=== PATIENT | male | born 1980 | race Caucasian/White ===

== ENCOUNTER 2017-09-18 06:53 | Inpatient (IN) | payer OTHER ==
[~2017-09-18] VITALS: Ht 170.2 cm; Wt 82.5 kg
[~2017-09-18 06:53] MED LIST: ASPI-1182 PO; GLIP10 PO; INSLAN SQ; PIOG30TA10 PO; SITA100 PO
[2017-09-18] MEDS ORDERED: DEXTROSE 5%-WATER 1,000 ML IV ONE (07:06)
[2017-09-18] MEDS ORDERED: DEXTROSE 50%-WATER 25 GM/50 ML SYRINGE IVP ONE ×3 (07:06→08:30)
[2017-09-18] MEDS ORDERED: INSNOV SQ (07:10)
[2017-09-18] MEDS ORDERED: INSLAN SQ (07:10)
[2017-09-18 07:13] LABS: GLUCOSE COMMENT 1 Repeated; GLUCOSE COMMENT 2 Doctor Notified; GLUCOSE,POINT OF CARE 20 MG/DL (70-110)
[2017-09-18 07:38] LABS: BASOPHILS % (AUTO) 0.7 % (0.0-2.0); EOSINOPHILS % (AUTO) 2.4 % (1.0-6.0); HEMATOCRIT 40.5 % (41-53); HEMOGLOBIN 13.9 g/dL (13.5-17.5); LYMPHOCYTES # (AUTO) 1.9 K/uL (1.0-4.8); LYMPHOCYTES % (AUTO) 33.1 % (22.0-44.0); MEAN CORPUSCULAR HEMOGLOBIN 30.5 pg (26.0-34.0); MEAN CORPUSCULAR HGB CONC 34.4 G/dL (31.0-37.0); MEAN CORPUSCULAR VOLUME 89 fL (80-100); MONOCYTES # (AUTO) 0.6 K/uL (0.1-1.0); NEUTROPHILS % (AUTO) 53.8 % (40.0-70.0); PLATELET COUNT (AUTO) 236 K/uL (150-450); RED BLOOD CELL COUNT(AUTO) 4.57 MIL/uL (4.50-5.90); RED CELL DISTRIBUTION WIDTH 13.4 % (11.5-14.5); WHITE BLOOD COUNT (AUTO) 5.6 K/uL (4.5-11.0)
[2017-09-18 07:50] LABS: ANION GAP 8 mmol/L (8-16); CALCIUM, TOTAL 8.7 mg/dL (8.8-10.5); CARBON DIOXIDE 28 mmol/L (22-29); CHLORIDE 106 mmol/L (98-107); CREATININE 0.95 mg/dL (0.60-1.30); GLOMERULAR FILTR. RATE CALC > 60 mL/min (>60); POTASSIUM 3.4 mmol/L (3.5-5.1); SODIUM SERUM 142 mmol/L (136-145); UREA NITROGEN, BLOOD 10 mg/dL (7-18)
[2017-09-18 07:56] LABS: ALANINE AMINOTRANSFERASE 29 U/L (12-78); ALBUMIN 3.8 g/dL (3.4-5.0); ASPARTATE AMINOTRANSFERASE 19 U/L (15-37); BILIRUBIN,TOTAL 0.3 mg/dL (0.1-1.0); TOTAL PROTEIN, SERUM 7.2 g/dL (6.4-8.2)
[2017-09-18] MEDS ORDERED: DEXTROSE 10%-WATER 1,000 ML IV ONE (08:30)
[2017-09-18 08:52] LABS: GLUCOSE,POINT OF CARE 34 MG/DL (70-110)
[2017-09-18 08:52] LABS: GLUCOSE,POINT OF CARE 127 MG/DL (70-110)
[2017-09-18 09:33] LABS: GLUCOSE,POINT OF CARE 124 MG/DL (70-110)
[2017-09-18 10:47] LABS: GLUCOSE,POINT OF CARE 140 MG/DL (70-110)
[2017-09-18 12:07] LABS: GLUCOSE,POINT OF CARE 188 MG/DL (70-110)
[2017-09-18 13:08] LABS: GLUCOSE,POINT OF CARE 242 MG/DL (70-110)
[2017-09-18 13:20] VITALS: BP 133/72
[2017-09-18] MEDS ORDERED: REPA2 PO (13:35)
[2017-09-18 16:00] VITALS: BP 114/75
[2017-09-18 18:41] LABS: GLUCOSE,POINT OF CARE 248 MG/DL (70-110)
[2017-09-18 19:30] VITALS: BP 127/78
[2017-09-18 19:37] LABS: GLUCOSE COMMENT 1 Doctor Notified; GLUCOSE,POINT OF CARE 314 MG/DL (70-110)
[2017-09-18] MEDS ORDERED: ACETAMINOPHEN 325 MG TABLET PO PRN (23:00)
[2017-09-18] MEDS ORDERED: ONDANSETRON HCL 4 MG/2 ML VIAL IVP PRN (23:00)
[2017-09-18] MEDS ORDERED: MORPHINE SULFATE 2 MG/ML SYRINGE IVP PRN (23:00)
[2017-09-18] MEDS ORDERED: MAGNESIUM HYDROXIDE SUSPENSION 30 ML UDCUP PO PRN (23:00)
[2017-09-18] MEDS ORDERED: HYDROCODONE/ACETAMINOPHEN 5-325 MG TABLET PO PRN (23:00)
[2017-09-18] MEDS ORDERED: ZOLPIDEM TARTRATE 5 MG TABLET PO PRN (23:00)
[2017-09-18] MEDS ORDERED: BISACODYL 10 MG RECTAL RECTAL SUPPOSITORY PR PRN (23:00)
[2017-09-18] MEDS ORDERED: ALBUTEROL SULFATE 2.5 MG/0.5 ML NEB SOLUTION NEB PRN (23:00)
[2017-09-18] MEDS ORDERED: IPRATROPIUM BROMIDE 0.5 MG/2.5 ML NEB SOLUTION NEB PRN (23:00)
[2017-09-18 23:22] LABS: GLUCOSE,POINT OF CARE 303 MG/DL (70-110)
[2017-09-19] MEDS ORDERED: HEPARIN SODIUM,PORCINE 5,000 UNITS/ML VIAL SQ SCH
[2017-09-19] MEDS ORDERED: PANTOPRAZOLE SODIUM 40 MG/VIAL IVP SCH (09:00)
[2017-09-19] MEDS ORDERED: DOCUSATE SODIUM 100 MG CAPSULE PO SCH (09:00)
== END 2017-09-18 21:30 | disposition home or self-care (01) | DRG 637 ==
LOC: EMS 06:54 → 4E 12:25
PROVIDERS: ADMIT Hospitalist; ATTEND Hospitalist
DX: E11.649 Type 2 diabetes mellitus with hypoglycemia without coma (principal); G93.41 Metabolic encephalopathy; T38.3X5A Adverse effect of insulin and oral hypoglycemic [antidiabetic] drugs, initial encounter; Z79.82 Long term (current) use of aspirin; Z83.3 Family history of diabetes mellitus; Z88.8 Allergy status to other drugs, medicaments and biological substances; Y92.89 Other specified places as the place of occurrence of the external cause; Z90.49 Acquired absence of other specified parts of digestive tract; Z79.4 Long term (current) use of insulin
CPT/HCPCS: 82962; 93005; 96374; 96376; 99285; J7060

== ENCOUNTER 2019-07-20 23:24 | Inpatient (IN) | payer MEDICAID, OTHER ==
[~2019-07-20] VITALS: Ht 170.2 cm; Wt 67.0 kg
[2019-07-20 23:51] LABS: GLUCOSE,POINT OF CARE > 600 MG/DL (70-110)
[2019-07-20] MEDS ORDERED: GLIP5TAB11 PO (23:55)
[2019-07-21 00:06] LABS: BASOPHILS % (AUTO) 0.7 % (0.0-2.0); EOSINOPHILS % (AUTO) 0 % (1.0-6.0); HEMATOCRIT 44.1 % (41-53); HEMOGLOBIN 13.5 g/dL (13.5-17.5); LYMPHOCYTES # (AUTO) 0.6 K/uL (1.0-4.8); LYMPHOCYTES % (AUTO) 3.6 % (22.0-44.0); MEAN CORPUSCULAR HGB CONC 30.6 G/dL (31.0-37.0); MEAN CORPUSCULAR VOLUME 101 fL (80-100); MONOCYTES # (AUTO) 0.7 K/uL (0.1-1.0); MONOCYTES % (AUTO) 4.5 % (2.0-9.0); NEUTROPHILS # (AUTO) 14.4 K/uL (1.8-7.7); PLATELET COUNT (AUTO) 227 K/uL (150-450); RED BLOOD CELL COUNT(AUTO) 4.35 MIL/uL (4.50-5.90); RED CELL DISTRIBUTION WIDTH 14.5 % (11.5-14.5)
[2019-07-21 00:13] LABS: NEUTROPHILS % (AUTO) 91.2 % (40.0-70.0)
[2019-07-21 00:43] LABS: GLUCOSE,RANDOM 960 mg/dL (70-110)
[2019-07-21 00:46] LABS: ANION GAP 37 mmol/L (8-16); CARBON DIOXIDE < 5 mmol/L (22-29); CHLORIDE 82 mmol/L (98-107); POTASSIUM 5.3 mmol/L (3.5-5.1); SODIUM SERUM 124 mmol/L (136-145); UREA NITROGEN, BLOOD 38 mg/dL (7-18)
[2019-07-21] MEDS ORDERED: POTASSIUM CHLORIDE 40 MEQ in SODIUM CHLORIDE 0.45% 1,000 ML IV PRN ×2 (00:46→05:59)
[2019-07-21] MEDS ORDERED: DEXTROSE 5%-0.45% SODIUM CHL 1,000 ML IV PRN ×2 (00:46→05:59)
[2019-07-21] MEDS ORDERED: SODIUM CHLORIDE 0.45% 1,000 ML IV PRN ×2 (00:46→05:59)
[2019-07-21] MEDS ORDERED: SODIUM CHLORIDE 0.9% 1,000 ML IV SCH ×2 (00:46→05:59)
[2019-07-21] MEDS ORDERED: POTASSIUM CHL 20 MEQ/0.45% NS 1,000 ML IV PRN ×2 (00:46→05:59)
[2019-07-21 00:47] LABS: ALANINE AMINOTRANSFERASE 13 U/L (12-78); ALKALINE PHOSPHATASE 110 U/L (46-116); ASPARTATE AMINOTRANSFERASE 10 U/L (15-37); BILIRUBIN,TOTAL 0.6 mg/dL (0.1-1.0); CALCIUM, TOTAL 8.4 mg/dL (8.8-10.5); CREATININE 2.79 mg/dL (0.60-1.30); GLOMERULAR FILTR. RATE CALC 26 mL/min (>60); TOTAL PROTEIN, SERUM 7.5 g/dL (6.4-8.2)
[2019-07-21 00:57] LABS: PROTHROMBIN TIME 10.4 SEC (9.4-11.6)
[2019-07-21 01:00] LABS: CREATINE KINASE, TOTAL ONLY 45 U/L (39-308)
[2019-07-21 01:00] LABS: APPEARANCE,URINE CLOUDY (CLEAR); GLUCOSE, URINE (UA) >=1000 mg/dL (NEGATIVE); KETONES,URINE 40 mg/dL (NEGATIVE); LEUKOCYTE ESTERASE ,URINE NEGATIVE (NEGATIVE); NITRATE,URINE NEGATIVE (NEGATIVE); OCCULT BLOOD,URINE TRACE (NEGATIVE); PROTEIN,URINE POS 1+ (NEGATIVE); UROBILINOGEN,URINE 0.2 mg/dL (<=1.0)
[2019-07-21] MEDS ORDERED: DEXTROSE 50%-WATER 25 GM/50 ML SYRINGE IVP PRN ×3 (01:00→12:30)
[2019-07-21 01:01] LABS: BILIRUBIN,URINE PRELIM. POSITIVE (NEGATIVE)
[2019-07-21] MEDS ORDERED: INSULIN REGULAR IV PRN ×2 (01:04)
[2019-07-21] MEDS ORDERED: HUMAN IV PRN ×2 (01:04)
[2019-07-21] MEDS ORDERED: SODIUM CHLORIDE 0.9% IV PRN ×2 (01:04)
[2019-07-21 01:10] LABS: RBC,URINE 0-2 /HPF (0-2); WBC,URINE 0-2 /HPF (0-5)
[2019-07-21 01:11] LABS: BACTERIA,URINE Few /HPF (None Seen); SQUAMOUS EPITHELIAL CELL,UR Few /LPF (None Seen)
[2019-07-21] MEDS ORDERED: INSULIN REGULAR, HUMAN 100 UNITS/ML IVP PRN ×2 (01:15→06:00)
[2019-07-21] MEDS ORDERED: INSULIN REGULAR, HUMAN 100 UNITS/ML IVP ONE ×2 (01:15→06:00)
[2019-07-21 01:18] LABS: B-TYPE NATRIURETIC PEPTIDE 17 pg/mL (0-100)
[2019-07-21] MEDS ORDERED: INSULIN REGULAR, HUMAN 100 UNITS in SODIUM CHLORIDE 0.9% 99 ML IV PRN ×4 (01:29→05:59)
[2019-07-21 01:33] LABS: LIPASE 107 U/L (73-393)
[2019-07-21 01:42] LABS: OSMOLALITY 347 mOS/kg (270-310)
[2019-07-21 02:51] LABS: GLUCOSE,POINT OF CARE > 600 MG/DL (70-110)
[2019-07-21] MEDS ORDERED: SODIUM CHLORIDE 0.9% 1,000 ML IV ONE (03:00)
[2019-07-21] MEDS ORDERED: ONDANSETRON HCL 4 MG/2 ML VIAL IVP ONE (03:00)
[2019-07-21 04:00] VITALS: BP 112/58
[2019-07-21] MEDS ORDERED: CefTRIAXone 1 GM/DEXTROSE 50 ML IV ONE (05:00)
[2019-07-21] MEDS ORDERED: VANCOMYCIN HCL 1 GM/D5% WATER 200 ML IV ONE (05:00)
[2019-07-21 05:09] LABS: BASOPHILS % (AUTO) 0.7 % (0.0-2.0); EOSINOPHILS % (AUTO) 0 % (1.0-6.0); HEMATOCRIT 39.1 % (41-53); HEMOGLOBIN 12.9 g/dL (13.5-17.5); LYMPHOCYTES # (AUTO) 0.4 K/uL (1.0-4.8); LYMPHOCYTES % (AUTO) 1.9 % (22.0-44.0); MEAN CORPUSCULAR HEMOGLOBIN 31.1 pg (26.0-34.0); MEAN CORPUSCULAR HGB CONC 32.9 G/dL (31.0-37.0); MEAN CORPUSCULAR VOLUME 95 fL (80-100); MONOCYTES # (AUTO) 1.4 K/uL (0.1-1.0); MONOCYTES % (AUTO) 6.7 % (2.0-9.0); PLATELET COUNT (AUTO) 205 K/uL (150-450); RED BLOOD CELL COUNT(AUTO) 4.14 MIL/uL (4.50-5.90); RED CELL DISTRIBUTION WIDTH 13.6 % (11.5-14.5)
[2019-07-21 05:26] LABS: NEUTROPHILS % (AUTO) 90.7 % (40.0-70.0)
[2019-07-21 05:39] LABS: ALBUMIN 3.4 g/dL (3.4-5.0); BILIRUBIN,TOTAL 0.6 mg/dL (0.1-1.0); CALCIUM, TOTAL 7.2 mg/dL (8.8-10.5); CREATININE 1.93 mg/dL (0.60-1.30); POTASSIUM 3.8 mmol/L (3.5-5.1); TOTAL PROTEIN, SERUM 6.9 g/dL (6.4-8.2)
[2019-07-21] MEDS ORDERED: PNEUMOCOCCAL VACCINE POLYVALENT 0.5 ML VIAL [PPSV23] IM ONE (05:45)
[2019-07-21] MEDS ORDERED: HYDROCODONE/ACETAMINOPHEN 5-325 MG TABLET PO PRN (06:00)
[2019-07-21] MEDS ORDERED: MORPHINE SULFATE 2 MG/ML SYRINGE IVP PRN (06:00)
[2019-07-21] MEDS ORDERED: BISACODYL 10 MG RECTAL RECTAL SUPPOSITORY PR PRN (06:00)
[2019-07-21] MEDS ORDERED: ZOLPIDEM TARTRATE 5 MG TABLET PO PRN (06:00)
[2019-07-21] MEDS ORDERED: MAGNESIUM HYDROXIDE SUSPENSION 30 ML UDCUP PO PRN (06:00)
[2019-07-21] MEDS ORDERED: ACETAMINOPHEN 325 MG TABLET PO PRN (06:00)
[2019-07-21] MEDS ORDERED: ONDANSETRON HCL 4 MG/2 ML VIAL IVP PRN (06:00)
[2019-07-21] MEDS ORDERED: SODIUM CHLORIDE 0.9% 250 ML IV ONE (06:17)
[2019-07-21 07:24] LABS: GLUCOSE,POINT OF CARE 187 MG/DL (70-110)
[2019-07-21 07:24] LABS: GLUCOSE,POINT OF CARE 102 MG/DL (70-110)
[2019-07-21 07:24] LABS: GLUCOSE,POINT OF CARE 486 MG/DL (70-110)
[2019-07-21 07:24] LABS: GLUCOSE,POINT OF CARE 307 MG/DL (70-110)
[2019-07-21 08:00] VITALS: BP 111/74
[2019-07-21] MEDS: DOCUSATE SODIUM 100 MG CAPSULE PO SCH ×2 (09:00→20:15)
[2019-07-21] MEDS: HEPARIN SODIUM,PORCINE 5,000 UNITS/ML VIAL SQ SCH ×2 (09:46→15:20)
[2019-07-21] MEDS: PANTOPRAZOLE SODIUM 40 MG DR TABLET PO SCH (09:46)
[2019-07-21 10:59] LABS: CALCIUM, TOTAL 7.5 mg/dL (8.8-10.5); CREATININE 1.51 mg/dL (0.60-1.30); POTASSIUM 3.3 mmol/L (3.5-5.1)
[2019-07-21] MEDS ORDERED: POTASSIUM CHL 10 MEQ/WATER 50 ML IV PRN (11:15)
[2019-07-21 11:20] LABS: MAGNESIUM 1.9 mg/dL (1.80-2.40)
[2019-07-21 11:24] LABS: PHOSPHORUS 1.3 mg/dL (2.5-4.9)
[2019-07-21 12:00] VITALS: BP 108/55
[2019-07-21] MEDS: POTASSIUM CHLORIDE 20 MEQ ER TABLET PO PRN (12:07)
[2019-07-21] MEDS: POTASSIUM PHOS/SODIUM PHOS MIXTURE 1 POWDER PACKET PO SCH ×3 (15:21→20:15)
[2019-07-21] MEDS: INSULIN LISPRO 100 UNITS/ML SQ PRN ×2 (15:34→17:45)
[2019-07-21 16:00] VITALS: BP 110/48
[2019-07-21 20:00] VITALS: BP 98/52
[2019-07-21] MEDS: INSULIN GLARGINE,HUM.REC.ANLOG 100 UNITS/ML SQ SCH (20:16)
[2019-07-21 21:17] LABS: GLUCOSE,POINT OF CARE 165 MG/DL (70-110)
[2019-07-21 21:17] LABS: GLUCOSE,POINT OF CARE 94 MG/DL (70-110)
[2019-07-21 21:17] LABS: GLUCOSE,POINT OF CARE 201 MG/DL (70-110)
[2019-07-21 21:17] LABS: GLUCOSE,POINT OF CARE 78 MG/DL (70-110)
[2019-07-21 21:17] LABS: GLUCOSE,POINT OF CARE 90 MG/DL (70-110)
[2019-07-21 21:17] LABS: GLUCOSE,POINT OF CARE 106 MG/DL (70-110)
[2019-07-21 21:17] LABS: GLUCOSE,POINT OF CARE 128 MG/DL (70-110)
[2019-07-21 21:17] LABS: GLUCOSE,POINT OF CARE 110 MG/DL (70-110)
[2019-07-22] VITALS: BP 117/88
[2019-07-22] MEDS: HEPARIN SODIUM,PORCINE 5,000 UNITS/ML VIAL SQ SCH ×3 (00:14→17:03)
[2019-07-22 04:00] VITALS: BP 110/70
[2019-07-22 05:12] LABS: BASOPHILS % (AUTO) 0.7 % (0.0-2.0); EOSINOPHILS % (AUTO) 0.1 % (1.0-6.0); HEMATOCRIT 34.9 % (41-53); HEMOGLOBIN 12.1 g/dL (13.5-17.5); LYMPHOCYTES % (AUTO) 9.7 % (22.0-44.0); MEAN CORPUSCULAR HEMOGLOBIN 31.5 pg (26.0-34.0); MEAN CORPUSCULAR HGB CONC 34.6 G/dL (31.0-37.0); MEAN CORPUSCULAR VOLUME 91 fL (80-100); MONOCYTES # (AUTO) 0.7 K/uL (0.1-1.0); MONOCYTES % (AUTO) 6.7 % (2.0-9.0); NEUTROPHILS # (AUTO) 8.8 K/uL (1.8-7.7); NEUTROPHILS % (AUTO) 82.8 % (40.0-70.0); PLATELET COUNT (AUTO) 164 K/uL (150-450); RED BLOOD CELL COUNT(AUTO) 3.83 MIL/uL (4.50-5.90); RED CELL DISTRIBUTION WIDTH 13.8 % (11.5-14.5)
[2019-07-22 05:25] LABS: ANION GAP 17 mmol/L (8-16); CARBON DIOXIDE 17 mmol/L (22-29); CHLORIDE 100 mmol/L (98-107); CREATININE 1.14 mg/dL (0.60-1.30); GLOMERULAR FILTR. RATE CALC > 60 mL/min (>60); GLUCOSE,RANDOM 338 mg/dL (70-110); PHOSPHORUS 1.6 mg/dL (2.5-4.9); POTASSIUM 4.1 mmol/L (3.5-5.1); SODIUM SERUM 134 mmol/L (136-145); UREA NITROGEN, BLOOD 15 mg/dL (7-18)
[2019-07-22] MEDS: INSULIN LISPRO 100 UNITS/ML SQ PRN ×3 (05:43→17:36)
[2019-07-22 08:00] VITALS: BP 104/57
[2019-07-22] MEDS: INSULIN GLARGINE,HUM.REC.ANLOG 100 UNITS/ML SQ SCH ×2 (08:38→21:54)
[2019-07-22] MEDS: DOCUSATE SODIUM 100 MG CAPSULE PO SCH ×2 (08:39→21:52)
[2019-07-22] MEDS: PANTOPRAZOLE SODIUM 40 MG DR TABLET PO SCH (08:39)
[2019-07-22 08:57] LABS: GLUCOSE,POINT OF CARE 315 MG/DL (70-110)
[2019-07-22 12:00] VITALS: BP 119/68
[2019-07-22 12:46] LABS: GLUCOSE,POINT OF CARE 244 MG/DL (70-110)
[2019-07-22] MEDS ORDERED: SODIUM CHLORIDE 0.9% 1,000 ML IV ONE (13:30)
[2019-07-22 19:56] LABS: GLUCOMETER DEV NAME(LOC) 6N.1; GLUCOSE,POINT OF CARE 162 MG/DL (70-110)
[2019-07-22 20:00] VITALS: BP 118/68
[2019-07-22 23:41] LABS: GLUCOMETER DEV NAME(LOC) 6N.1; GLUCOSE,POINT OF CARE 211 MG/DL (70-110)
[2019-07-23] VITALS (7 sets, daily range): BP systolic 126–150; BP diastolic 77–99
[2019-07-23] MEDS: HEPARIN SODIUM,PORCINE 5,000 UNITS/ML VIAL SQ SCH ×4 (00:21→23:43)
[2019-07-23] MEDS: INSULIN LISPRO 100 UNITS/ML SQ PRN ×4 (00:40→21:21)
[2019-07-23] MEDS: DOCUSATE SODIUM 100 MG CAPSULE PO SCH ×2 (09:00→21:19)
[2019-07-23] MEDS: PANTOPRAZOLE SODIUM 40 MG DR TABLET PO SCH (10:07)
[2019-07-23] MEDS: INSULIN GLARGINE,HUM.REC.ANLOG 100 UNITS/ML SQ SCH ×2 (10:08→21:22)
[2019-07-23 11:42] LABS: GLUCOMETER DEV NAME(LOC) 6N.1; GLUCOSE,POINT OF CARE 115 MG/DL (70-110)
[2019-07-23 11:42] LABS: GLUCOMETER DEV NAME(LOC) 6N.1; GLUCOSE,POINT OF CARE 256 MG/DL (70-110)
[2019-07-23 13:23] LABS: ALANINE AMINOTRANSFERASE 15 U/L (12-78); ALKALINE PHOSPHATASE 86 U/L (46-116); ANION GAP 13 mmol/L (8-16); ASPARTATE AMINOTRANSFERASE 14 U/L (15-37); BILIRUBIN,TOTAL 0.5 mg/dL (0.1-1.0); CALCIUM, TOTAL 8.1 mg/dL (8.8-10.5); CARBON DIOXIDE 23 mmol/L (22-29); CHLORIDE 102 mmol/L (98-107); CREATININE 0.93 mg/dL (0.60-1.30); GLOMERULAR FILTR. RATE CALC > 60 mL/min (>60); GLUCOSE,RANDOM 264 mg/dL (70-110); POTASSIUM 3.1 mmol/L (3.5-5.1); SODIUM SERUM 138 mmol/L (136-145); TOTAL PROTEIN, SERUM 6.2 g/dL (6.4-8.2); UREA NITROGEN, BLOOD 10 mg/dL (7-18)
[2019-07-23] MEDS: SODIUM CHLORIDE 0.9% 1,000 ML IV SCH ×2 (14:11→23:44)
[2019-07-23] MEDS: POTASSIUM CHLORIDE 20 MEQ ER TABLET PO PRN ×2 (17:10→23:43)
[2019-07-23 17:36] LABS: GLUCOMETER DEV NAME(LOC) 6N.1; GLUCOSE,POINT OF CARE 159 MG/DL (70-110)
[2019-07-23 20:36] LABS: GLUCOMETER DEV NAME(LOC) 6N.1; GLUCOSE,POINT OF CARE 253 MG/DL (70-110)
[2019-07-24 04:43] VITALS: BP 119/83
[2019-07-24] MEDS: INSULIN LISPRO 100 UNITS/ML SQ PRN ×2 (05:53→12:16)
[2019-07-24 06:27] LABS: GLUCOMETER DEV NAME(LOC) 6N.1; GLUCOSE,POINT OF CARE 154 MG/DL (70-110)
[2019-07-24 06:39] LABS: BASOPHILS % (AUTO) 0.7 % (0.0-2.0); EOSINOPHILS % (AUTO) 1.9 % (1.0-6.0); HEMATOCRIT 37.2 % (41-53); HEMOGLOBIN 12.8 g/dL (13.5-17.5); LYMPHOCYTES # (AUTO) 1.8 K/uL (1.0-4.8); LYMPHOCYTES % (AUTO) 30.4 % (22.0-44.0); MEAN CORPUSCULAR HEMOGLOBIN 31.1 pg (26.0-34.0); MEAN CORPUSCULAR HGB CONC 34.4 G/dL (31.0-37.0); MEAN CORPUSCULAR VOLUME 90 fL (80-100); MONOCYTES # (AUTO) 0.6 K/uL (0.1-1.0); MONOCYTES % (AUTO) 10.6 % (2.0-9.0); NEUTROPHILS # (AUTO) 3.3 K/uL (1.8-7.7); NEUTROPHILS % (AUTO) 56.4 % (40.0-70.0); PLATELET COUNT (AUTO) 164 K/uL (150-450); RED BLOOD CELL COUNT(AUTO) 4.12 MIL/uL (4.50-5.90); RED CELL DISTRIBUTION WIDTH 13.8 % (11.5-14.5)
[2019-07-24 07:01] LABS: ALANINE AMINOTRANSFERASE 14 U/L (12-78); ALBUMIN 2.9 g/dL (3.4-5.0); ALKALINE PHOSPHATASE 80 U/L (46-116); ANION GAP 6 mmol/L (8-16); ASPARTATE AMINOTRANSFERASE 14 U/L (15-37); BILIRUBIN,TOTAL 0.3 mg/dL (0.1-1.0); CALCIUM, TOTAL 8.2 mg/dL (8.8-10.5); CARBON DIOXIDE 29 mmol/L (22-29); CHLORIDE 108 mmol/L (98-107); GLOMERULAR FILTR. RATE CALC > 60 mL/min (>60); GLUCOSE,RANDOM 155 mg/dL (70-110); POTASSIUM 3.3 mmol/L (3.5-5.1); SODIUM SERUM 143 mmol/L (136-145); TOTAL PROTEIN, SERUM 5.7 g/dL (6.4-8.2); UREA NITROGEN, BLOOD 6 mg/dL (7-18)
[2019-07-24 08:37] VITALS: BP 122/74
[2019-07-24] MEDS: DOCUSATE SODIUM 100 MG CAPSULE PO SCH ×2 (08:55→09:01)
[2019-07-24] MEDS: PANTOPRAZOLE SODIUM 40 MG DR TABLET PO SCH (08:55)
[2019-07-24] MEDS: HEPARIN SODIUM,PORCINE 5,000 UNITS/ML VIAL SQ SCH (08:56)
[2019-07-24] MEDS: INSULIN GLARGINE,HUM.REC.ANLOG 100 UNITS/ML SQ SCH (08:58)
[2019-07-24] MEDS: SODIUM CHLORIDE 0.9% 1,000 ML IV SCH (08:59)
[2019-07-24] MEDS: POTASSIUM CHLORIDE 20 MEQ ER TABLET PO PRN (10:20)
[2019-07-24 12:36] LABS: GLUCOMETER DEV NAME(LOC) 6N.1; GLUCOSE,POINT OF CARE 224 MG/DL (70-110)
[2019-07-24] MEDS ORDERED: INSLAN SQ (12:50)
[2019-07-24 12:57] VITALS: BP 117/77
[2019-07-24] MEDS ORDERED: INSU100C14 SQ (12:57)
== END 2019-07-24 13:29 | disposition home or self-care (01) | DRG 420 ==
LOC: EMS 23:24 → ICUN 07-21 01:00 → 6N 07-22 15:55
PROVIDERS: ADMIT Internal Medicine; ATTEND Internal Medicine
DX: E11.10 Type 2 diabetes mellitus with ketoacidosis without coma (principal); N17.9 Acute kidney failure, unspecified; R64 Cachexia; R65.10 Systemic inflammatory response syndrome (SIRS) of non-infectious origin without acute organ dysfunction; E87.6 Hypokalemia; D64.9 Anemia, unspecified; D72.829 Elevated white blood cell count, unspecified; E87.1 Hypo-osmolality and hyponatremia; R07.89 Other chest pain; R00.0 Tachycardia, unspecified; Z79.4 Long term (current) use of insulin; Z68.23 Body mass index [BMI] 23.0-23.9, adult; Z79.899 Other long term (current) drug therapy
CPT/HCPCS: 83605; 83735; 83930; 84100; 84132; 87040; 87081; 93005; 99291; G0378; J0696; J1644; J1815; J2405; J3370; J3480; J7030; J7050

== ENCOUNTER 2021-06-05 04:32 | Emergency (ER) | payer BC, MEDICAID ==
[~2021-06-05] VITALS: Ht 170.2 cm; Wt 69.5 kg
[~2021-06-05 04:32] MED LIST changes: -ASPI-1182 PO; -GLIP10 PO; +INSU100C14 SQ; -PIOG30TA10 PO; -SITA100 PO
[2021-06-05 05:28] LABS: BASOPHILS % (AUTO) 0.6 % (0.0-2.0); EOSINOPHILS % (AUTO) 0.3 % (1.0-6.0); HEMATOCRIT 36.9 % (41-53); HEMOGLOBIN 12.5 g/dL (13.5-17.5); LYMPHOCYTES # (AUTO) 0.8 K/uL (1.0-4.8); LYMPHOCYTES % (AUTO) 8.5 % (22.0-44.0); MEAN CORPUSCULAR HEMOGLOBIN 30.6 pg (26.0-34.0); MEAN CORPUSCULAR VOLUME 90 fL (80-100); MONOCYTES % (AUTO) 9.5 % (2.0-9.0); NEUTROPHILS # (AUTO) 8.1 K/uL (1.8-7.7); NEUTROPHILS % (AUTO) 81.1 % (40.0-70.0); PLATELET COUNT (AUTO) 107 K/uL (150-450); RED BLOOD CELL COUNT(AUTO) 4.09 MIL/uL (4.50-5.90); RED CELL DISTRIBUTION WIDTH 13.1 % (11.5-14.5)
[2021-06-05 05:40] LABS: CALCIUM, TOTAL 9.1 mg/dL (8.8-10.5); CREATININE 1.52 mg/dL (0.60-1.30); POTASSIUM 4.3 mmol/L (3.5-5.1)
[2021-06-05 05:46] LABS: ALBUMIN 3.8 g/dL (3.4-5.0); BILIRUBIN,TOTAL 1.1 mg/dL (0.1-1.0); TOTAL PROTEIN, SERUM 7.8 g/dL (6.4-8.2)
[2021-06-05] MEDS ORDERED: INSULIN REGULAR, HUMAN 100 UNITS/ML IVP ONE ×2 (06:30→07:15)
[2021-06-05] MEDS ORDERED: ONDANSETRON HCL 4 MG/2 ML VIAL IVP ONE (06:30)
[2021-06-05] MEDS ORDERED: KETOROLAC TROMETHAMINE 30 MG/ML VIAL IVP ONE (06:30)
[2021-06-05] MEDS ORDERED: SODIUM CHLORIDE 0.9% 2,000 ML IV ONE (06:30)
[2021-06-05 07:08] LABS: GLUCOSE,POINT OF CARE 291 MG/DL (70-110)
[2021-06-05 08:36] LABS: GLUCOSE,POINT OF CARE 124 MG/DL (70-110)
[2021-06-05 08:44] VITALS: BP 152/52
== END 2021-06-05 08:50 | disposition home or self-care (01) ==
LOC: EMS 04:35
DX: E11.65 Type 2 diabetes mellitus with hyperglycemia (principal); G47.00 Insomnia, unspecified; E87.1 Hypo-osmolality and hyponatremia; Z79.4 Long term (current) use of insulin
CPT/HCPCS: 36415; 80053; 82009; 82962; 83690; 85025; 93005; 96361; 96374; 96375; 99284; J1815; J1885; J2405; J7030

== ENCOUNTER 2021-10-03 04:07 | Emergency (ER) | payer BC ==
[~2021-10-03] VITALS: Ht 170.2 cm; Wt 71.8 kg
[2021-10-03] MEDS ORDERED: SODIUM CHLORIDE 0.9% 2,000 ML IV ONE (05:30)
[2021-10-03] MEDS ORDERED: MECLIZINE HCL 25 MG TABLET PO ONE (05:30)
[2021-10-03] MEDS ORDERED: ACETAMINOPHEN 500 MG TABLET PO ONE (05:30)
[2021-10-03] MEDS ORDERED: ONDANSETRON HCL 4 MG/2 ML VIAL IVP ONE (05:30)
[2021-10-03 05:32] LABS: BASOPHILS % (AUTO) 0.6 % (0.0-2.0); HEMATOCRIT 32.2 % (41-53); HEMOGLOBIN 11.4 g/dL (13.5-17.5); LYMPHOCYTES # (AUTO) 1.7 K/uL (1.0-4.8); LYMPHOCYTES % (AUTO) 23.6 % (22.0-44.0); MEAN CORPUSCULAR HEMOGLOBIN 31.9 pg (26.0-34.0); MEAN CORPUSCULAR HGB CONC 35.3 G/dL (31.0-37.0); MEAN CORPUSCULAR VOLUME 90 fL (80-100); MONOCYTES # (AUTO) 0.9 K/uL (0.1-1.0); MONOCYTES % (AUTO) 12.6 % (2.0-9.0); NEUTROPHILS # (AUTO) 4.3 K/uL (1.8-7.7); NEUTROPHILS % (AUTO) 60.2 % (40.0-70.0); PLATELET COUNT (AUTO) 103 K/uL (150-450); RED BLOOD CELL COUNT(AUTO) 3.57 MIL/uL (4.50-5.90); RED CELL DISTRIBUTION WIDTH 12.8 % (11.5-14.5)
[2021-10-03 05:51] LABS: CALCIUM, TOTAL 8.8 mg/dL (8.8-10.5); POTASSIUM 3.6 mmol/L (3.5-5.1)
[2021-10-03 05:56] LABS: ALBUMIN 3.3 g/dL (3.4-5.0); BILIRUBIN,TOTAL 0.6 mg/dL (0.1-1.0); TOTAL PROTEIN, SERUM 6.7 g/dL (6.4-8.2)
[2021-10-03 07:36] VITALS: BP 136/85
== END 2021-10-03 08:15 | disposition home or self-care (01) ==
LOC: EMS 04:10
DX: E11.65 Type 2 diabetes mellitus with hyperglycemia (principal); R42 Dizziness and giddiness; R11.10 Vomiting, unspecified; Z79.4 Long term (current) use of insulin
CPT/HCPCS: 36415; 80053; 82962; 85025; 96360; 96361; 99283; J2405; J7030

== ENCOUNTER 2022-01-16 09:45 | Emergency (ER) | payer BC, OTHER ==
[~2022-01-16] VITALS: Ht 170.2 cm; Wt 72.7 kg
[2022-01-16] MEDS ORDERED: SODIUM CHLORIDE 0.9% 1,000 ML IV ONE ×2 (10:30→12:15)
[2022-01-16] MEDS ORDERED: ONDANSETRON HCL 4 MG/2 ML VIAL IVP ONE (10:30)
[2022-01-16] MEDS ORDERED: INSULIN REGULAR, HUMAN 100 UNITS/ML IVP ONE (10:30)
[2022-01-16 10:31] LABS: BASOPHILS % (AUTO) 0.3 % (0.0-2.0); EOSINOPHILS % (AUTO) 0.1 % (1.0-6.0); HEMATOCRIT 36.3 % (41-53); HEMOGLOBIN 12.3 g/dL (13.5-17.5); LYMPHOCYTES # (AUTO) 1.1 K/uL (1.0-4.8); LYMPHOCYTES % (AUTO) 13.5 % (22.0-44.0); MEAN CORPUSCULAR HEMOGLOBIN 29.7 pg (26.0-34.0); MEAN CORPUSCULAR HGB CONC 33.9 G/dL (31.0-37.0); MEAN CORPUSCULAR VOLUME 88 fL (80-100); MONOCYTES # (AUTO) 0.6 K/uL (0.1-1.0); MONOCYTES % (AUTO) 8.3 % (2.0-9.0); NEUTROPHILS % (AUTO) 77.8 % (40.0-70.0); PLATELET COUNT (AUTO) 248 K/uL (150-450); RED BLOOD CELL COUNT(AUTO) 4.14 MIL/uL (4.50-5.90); RED CELL DISTRIBUTION WIDTH 12.7 % (11.5-14.5)
[2022-01-16 10:45] LABS: ABG BASE EXCESS -0.3 mmol/L (-2.0-3.0); ABG CARBOXYHEMOGLOBIN 0.5 % (0.0-1.5); ABG HCO3 24.3 mmol/L (22.0-26.0); ABG OXYGEN CONTENT 15.9 mL/dL (15.0-23.0); ABG OXYGEN SATURATION 94.3 % (95.0-98.0); ABG OXYHEMOGLOBIN 93.8 % (94.0-100.0); ABG PCO2 39 mmHg (35-45); ABG PH 7.413 (7.350-7.450); PO2, ARTERIAL BG 77.3 mmHg (92.0-100.0); SITE, BLOOD GAS RT BRACHIAL; SOURCE, BLOOD GAS ARTERIAL; TEMPERATURE, FAHRENHEIT, BG 98.4 FAHREN (96.0-98.6)
[2022-01-16 10:46] LABS: O2 DEVICE,BLOOD GAS ROOM AIR (ROOM AIR)
[2022-01-16 10:47] LABS: ALANINE AMINOTRANSFERASE 18 U/L (12-78); ALBUMIN 3.6 g/dL (3.4-5.0); ALKALINE PHOSPHATASE 145 U/L (46-116); ANION GAP 16 mmol/L (8-16); ASPARTATE AMINOTRANSFERASE 16 U/L (15-37); BILIRUBIN,TOTAL 0.9 mg/dL (0.1-1.0); CALCIUM, TOTAL 8.6 mg/dL (8.8-10.5); CARBON DIOXIDE 28 mmol/L (22-29); CHLORIDE 81 mmol/L (98-107); CREATININE 2.19 mg/dL (0.60-1.30); GLOMERULAR FILTR. RATE CALC 34 mL/min (>60); LIPASE 46 U/L (73-393); POTASSIUM 4.6 mmol/L (3.5-5.1); SODIUM SERUM 125 mmol/L (136-145); TOTAL PROTEIN, SERUM 7.6 g/dL (6.4-8.2); UREA NITROGEN, BLOOD 45 mg/dL (7-18)
[2022-01-16 10:49] LABS: GLUCOSE,RANDOM 581 mg/dL (70-110)
[2022-01-16 11:35] VITALS: BP 154/85
[2022-01-16 11:46] LABS: GLUCOMETER DEV NAME(LOC) ERT.5; GLUCOSE,POINT OF CARE 386 MG/DL (70-110)
== END 2022-01-16 13:05 | disposition left against medical advice (07) ==
LOC: EMS 09:45
DX: E11.65 Type 2 diabetes mellitus with hyperglycemia (principal); E86.0 Dehydration; Z79.4 Long term (current) use of insulin
CPT/HCPCS: 36415; 36600; 80053; 82009; 82805; 82962; 83690; 85025; 96361; 96374; 96375; 99284; J1815; J2405; J7030

== ENCOUNTER 2022-03-05 07:26 | Inpatient (IN) | payer OTHER ==
[~2022-03-05] VITALS: Ht 170.2 cm; Wt 74.0 kg
[2022-03-05] MEDS ORDERED: SODIUM CHLORIDE 0.9% 1,000 ML IV ONE ×2 (08:00→11:15)
[2022-03-05] MEDS ORDERED: ONDANSETRON HCL 4 MG/2 ML VIAL IVP ONE (08:00)
[2022-03-05] MEDS ORDERED: FAMOTIDINE 10 MG/ML 2 ML VIAL IVP ONE (08:00)
[2022-03-05 08:01] LABS: BASOPHILS % (AUTO) 0.3 % (0.0-2.0); EOSINOPHILS % (AUTO) 0 % (1.0-6.0); HEMATOCRIT 28.7 % (41-53); HEMOGLOBIN 9.5 g/dL (13.5-17.5); LYMPHOCYTES # (AUTO) 1.4 K/uL (1.0-4.8); LYMPHOCYTES % (AUTO) 11.7 % (22.0-44.0); MEAN CORPUSCULAR HEMOGLOBIN 30.1 pg (26.0-34.0); MEAN CORPUSCULAR HGB CONC 33.3 G/dL (31.0-37.0); MEAN CORPUSCULAR VOLUME 91 fL (80-100); MONOCYTES # (AUTO) 1.3 K/uL (0.1-1.0); MONOCYTES % (AUTO) 10.7 % (2.0-9.0); NEUTROPHILS # (AUTO) 9.3 K/uL (1.8-7.7); NEUTROPHILS % (AUTO) 77.3 % (40.0-70.0); PLATELET COUNT (AUTO) 198 K/uL (150-450); RED BLOOD CELL COUNT(AUTO) 3.17 MIL/uL (4.50-5.90); RED CELL DISTRIBUTION WIDTH 12.8 % (11.5-14.5)
[2022-03-05 08:16] LABS: B-TYPE NATRIURETIC PEPTIDE 50 pg/mL (0-100)
[2022-03-05 08:33] LABS: ALANINE AMINOTRANSFERASE 14 U/L (12-78); ALBUMIN 2.8 g/dL (3.4-5.0); ALKALINE PHOSPHATASE 126 U/L (46-116); ANION GAP 12 mmol/L (8-16); ASPARTATE AMINOTRANSFERASE 25 U/L (15-37); BILIRUBIN,TOTAL 0.8 mg/dL (0.1-1.0); CALCIUM, TOTAL 7.9 mg/dL (8.8-10.5); CARBON DIOXIDE 30 mmol/L (22-29); CHLORIDE 78 mmol/L (98-107); CREATINE KINASE, TOTAL ONLY 96 U/L (39-308); CREATININE 2.38 mg/dL (0.60-1.30); GLOMERULAR FILTR. RATE CALC 31 mL/min (>60); LIPASE 79 U/L (73-393); PHOSPHORUS 6.4 mg/dL (2.5-4.9); TOTAL PROTEIN, SERUM 6.3 g/dL (6.4-8.2); UREA NITROGEN, BLOOD 68 mg/dL (7-18)
[2022-03-05 08:35] LABS: ABG BASE EXCESS 4.4 mmol/L (-2.0-3.0); ABG CARBOXYHEMOGLOBIN 0.2 % (0.0-1.5); ABG HCO3 27.9 mmol/L (22.0-26.0); ABG METHEMOGLOBIN 0.1 % (0.0-1.5); ABG OXYGEN CONTENT 12.9 mL/dL (15.0-23.0); ABG OXYGEN SATURATION 95.3 % (95.0-98.0); ABG PCO2 46 mmHg (35-45); ABG PH 7.416 (7.350-7.450); ABG TOTAL HEMOGLOBIN 9.6 G/dL (12.0-18.0); PO2, ARTERIAL BG 82.9 mmHg (92.0-100.0); SITE, BLOOD GAS RT BRACHIAL; SOURCE, BLOOD GAS ARTERIAL; TEMPERATURE, FAHRENHEIT, BG 98.6 FAHREN (96.0-98.6)
[2022-03-05 08:36] LABS: ABG A-A DIFF O2 11.6 mmHg (10-20.0); O2 DEVICE,BLOOD GAS ROOM AIR (ROOM AIR)
[2022-03-05] MEDS ORDERED: INSULIN REGULAR, HUMAN 100 UNITS in SODIUM CHLORIDE 0.9% 99 ML IV PRN ×4 (08:45→20:46)
[2022-03-05] MEDS ORDERED: SODIUM CHLORIDE 0.9% 1,000 ML IV SCH (08:45)
[2022-03-05] MEDS ORDERED: INSULIN REGULAR, HUMAN 100 UNITS/ML IVP ONE (08:45)
[2022-03-05] MEDS ORDERED: DEXTROSE 50%-WATER 25 GM/50 ML SYRINGE IVP PRN ×3 (08:45→20:46)
[2022-03-05] MEDS ORDERED: DEXTROSE 5%-0.45% SODIUM CHL 1,000 ML IV PRN ×2 (08:45→20:46)
[2022-03-05] MEDS ORDERED: SODIUM CHLORIDE 0.45% 1,000 ML IV PRN ×2 (08:45→20:46)
[2022-03-05] MEDS ORDERED: POTASSIUM CHL 20 MEQ/0.45% NS 1,000 ML IV PRN ×2 (08:45→20:46)
[2022-03-05] MEDS ORDERED: POTASSIUM CHLORIDE 40 MEQ in SODIUM CHLORIDE 0.45% 1,000 ML IV PRN ×2 (08:45→20:46)
[2022-03-05 08:46] LABS: GLUCOSE,RANDOM 901 mg/dL (70-110); SODIUM SERUM 120 mmol/L (136-145)
[2022-03-05] MEDS ORDERED: CALCIUM GLUCONATE 1,000 MG in DEXTROSE 5%-WATER 50 ML IV ONE (09:00)
[2022-03-05 09:29] LABS: CALCIUM, TOTAL 7.3 mg/dL (8.8-10.5); CREATININE 2.23 mg/dL (0.60-1.30)
[2022-03-05] MEDS ORDERED: BISACODYL 10 MG RECTAL RECTAL SUPPOSITORY PR PRN (09:45)
[2022-03-05] MEDS ORDERED: 0.9% SODIUM CHLORIDE 10 ML SYRINGE IVP PRN (09:45)
[2022-03-05] MEDS ORDERED: IPRATROPIUM BROMIDE 0.5 MG/2.5 ML NEB SOLUTION NEB PRN (09:45)
[2022-03-05] MEDS ORDERED: ALBUTEROL SULFATE 2.5 MG/0.5 ML NEB SOLUTION NEB PRN ×2 (09:45)
[2022-03-05] MEDS ORDERED: PANTOPRAZOLE SODIUM 40 MG/VIAL IVP SCH (09:45)
[2022-03-05] MEDS ORDERED: ACETAMINOPHEN 325 MG TABLET PO PRN (09:45)
[2022-03-05] MEDS ORDERED: ONDANSETRON HCL 4 MG/2 ML VIAL IVP PRN (09:45)
[2022-03-05 10:56] LABS: GLUCOMETER DEV NAME(LOC) ERT.5; GLUCOSE,POINT OF CARE > 600 MG/DL (70-110)
[2022-03-05] MEDS: INSULIN REGULAR, HUMAN 100 UNITS/ML IVP PRN ×3 (11:01→14:11)
[2022-03-05 11:05] LABS: CALCIUM, TOTAL 7.6 mg/dL (8.8-10.5); CREATININE 2.41 mg/dL (0.60-1.30); POTASSIUM 4.7 mmol/L (3.5-5.1)
[2022-03-05 11:16] LABS: FREE T4 (FREE THYROXINE) 0.81 ng/dL (0.76-1.46); THYROID STIMULATING HORMONE 0.97 uIU/mL (0.36-3.74)
[2022-03-05 11:23] LABS: AMPHET/METH SCREEN,URINE NEGATIVE (NEGATIVE); BARBITURATE SCREEN, URINE NEGATIVE (NEGATIVE); BENZODIAZEPINES SCREEN,URINE NEGATIVE (NEGATIVE); CANNABINOID SCREEN,URINE NEGATIVE (NEGATIVE); COCAINE SCREEN,URINE NEGATIVE (NEGATIVE); METHADONE SCREEN, URINE NEGATIVE (NEGATIVE); OPIATE SCREEN,URINE NEGATIVE (NEGATIVE)
[2022-03-05 11:24] LABS: PHENCYCLIDINE SCREEN,URINE NEGATIVE (NEGATIVE)
[2022-03-05 11:28] LABS: COVID AG,FIA SOURCE NASOPHARYNGEAL
[2022-03-05 11:56] LABS: GLUCOMETER DEV NAME(LOC) ERT.5; GLUCOSE,POINT OF CARE > 600 MG/DL (70-110)
[2022-03-05 13:08] LABS: CALCIUM, TOTAL 7.2 mg/dL (8.8-10.5); CREATININE 2.19 mg/dL (0.60-1.30); POTASSIUM 4.3 mmol/L (3.5-5.1)
[2022-03-05 13:21] LABS: GLUCOMETER DEV NAME(LOC) ERT.5; GLUCOSE,POINT OF CARE 461 MG/DL (70-110)
[2022-03-05 14:21] LABS: GLUCOMETER DEV NAME(LOC) ERT.5; GLUCOSE,POINT OF CARE 359 MG/DL (70-110)
[2022-03-05 15:11] LABS: GLUCOMETER DEV NAME(LOC) ERT.5; GLUCOSE,POINT OF CARE 267 MG/DL (70-110)
[2022-03-05 16:26] LABS: GLUCOMETER DEV NAME(LOC) ERT.5; GLUCOSE,POINT OF CARE 174 MG/DL (70-110)
[2022-03-05 17:31] LABS: GLUCOMETER DEV NAME(LOC) ERT.5; GLUCOSE,POINT OF CARE 128 MG/DL (70-110)
[2022-03-05 17:43] LABS: APPEARANCE,URINE CLEAR (CLEAR); BILIRUBIN,URINE NEGATIVE (NEGATIVE); GLUCOSE, URINE (UA) >=1000 mg/dL (NEGATIVE); LEUKOCYTE ESTERASE ,URINE NEGATIVE (NEGATIVE); NITRATE,URINE NEGATIVE (NEGATIVE); OCCULT BLOOD,URINE TRACE (NEGATIVE); PROTEIN,URINE NEGATIVE (NEGATIVE); SPECIFIC GRAVITIY, URINE 1.021 (1.003-1.030); UROBILINOGEN,URINE <=1.0 mg/dL (<=1.0)
[2022-03-05 17:48] LABS: CALCIUM, TOTAL 7.6 mg/dL (8.8-10.5); CREATININE 2.09 mg/dL (0.60-1.30); POTASSIUM 3.6 mmol/L (3.5-5.1)
[2022-03-05 18:06] LABS: BACTERIA,URINE None Seen /HPF (None Seen); SQUAMOUS EPITHELIAL CELL,UR Rare /LPF (None Seen); WBC,URINE 0-2 /HPF (0-5)
[2022-03-05 18:41] LABS: GLUCOMETER DEV NAME(LOC) ERT.5; GLUCOSE,POINT OF CARE 77 MG/DL (70-110)
[2022-03-05] MEDS ORDERED: INSULIN GLARGINE,HUM.REC.ANLOG 100 UNITS/ML SQ ONE (19:00)
[2022-03-05 19:16] LABS: GLUCOMETER DEV NAME(LOC) ERT.5; GLUCOSE,POINT OF CARE 60 MG/DL (70-110)
[2022-03-05 19:46] LABS: GLUCOMETER DEV NAME(LOC) ERT.5; GLUCOSE,POINT OF CARE 189 MG/DL (70-110)
[2022-03-05 19:56] LABS: CALCIUM, TOTAL 7.6 mg/dL (8.8-10.5); CREATININE 1.91 mg/dL (0.60-1.30); POTASSIUM 4.1 mmol/L (3.5-5.1)
[2022-03-05] MEDS ORDERED: INSULIN REGULAR, HUMAN 100 UNITS/ML IVP PRN (20:46)
[2022-03-05 21:26] LABS: GLUCOMETER DEV NAME(LOC) ERT.5; GLUCOSE,POINT OF CARE 239 MG/DL (70-110)
[2022-03-05] MEDS: INSULIN LISPRO 100 UNITS/ML SQ PRN (22:27)
[2022-03-05 23:56] LABS: GLUCOMETER DEV NAME(LOC) ERT.5; GLUCOSE,POINT OF CARE 204 MG/DL (70-110)
[2022-03-06] VITALS (10 sets, daily range): BP systolic 120–151; BP diastolic 68–86
[2022-03-06 01:40] LABS: CALCIUM, TOTAL 7.6 mg/dL (8.8-10.5); CREATININE 1.7 mg/dL (0.60-1.30); POTASSIUM 3.7 mmol/L (3.5-5.1)
[2022-03-06 05:03] LABS: BASOPHILS % (AUTO) 0.4 % (0.0-2.0); EOSINOPHILS % (AUTO) 0.2 % (1.0-6.0); LYMPHOCYTES # (AUTO) 1.8 K/uL (1.0-4.8); LYMPHOCYTES % (AUTO) 18.7 % (22.0-44.0); MEAN CORPUSCULAR HEMOGLOBIN 29.6 pg (26.0-34.0); MEAN CORPUSCULAR HGB CONC 34.2 G/dL (31.0-37.0); MEAN CORPUSCULAR VOLUME 87 fL (80-100); NEUTROPHILS # (AUTO) 6.7 K/uL (1.8-7.7); NEUTROPHILS % (AUTO) 70.7 % (40.0-70.0); PLATELET COUNT (AUTO) 158 K/uL (150-450); RED BLOOD CELL COUNT(AUTO) 2.18 MIL/uL (4.50-5.90)
[2022-03-06 05:10] LABS: HEMATOCRIT 18.9 % (41-53); HEMOGLOBIN 6.4 g/dL (13.5-17.5)
[2022-03-06 05:12] LABS: CHOL/HDL RATIO 2.5 (4.2-7.3)
[2022-03-06 05:18] LABS: HEMOGLOBIN A1C 11.1 % (3.8-5.6)
[2022-03-06] MEDS ORDERED: PANTOPRAZOLE SODIUM 40 MG/VIAL IVP ONE (05:45)
[2022-03-06] MEDS ORDERED: INSULIN GLARGINE,HUM.REC.ANLOG 100 UNITS/ML SQ SCH (06:00)
[2022-03-06 06:26] LABS: GLUCOMETER DEV NAME(LOC) ERT.5; GLUCOSE,POINT OF CARE 148 MG/DL (70-110)
[2022-03-06 06:34] LABS: RETICULOCYTE % (AUTO) 1.7 % (0.5-2.3)
[2022-03-06 06:41] LABS: HEMOGLOBIN 6.5 g/dL (13.5-17.5)
[2022-03-06 06:42] LABS: HEMATOCRIT 18.7 % (41-53)
[2022-03-06 06:44] LABS: % IRON SATURATION 29.3 % (30-44)
[2022-03-06] MEDS: RINGERS SOLUTION,LACTATED 1,000 ML IV SCH ×2 (07:13→16:53)
[2022-03-06] MEDS ORDERED: SODIUM CHLORIDE 0.9% 250 ML IV ONE (12:41)
[2022-03-06] MEDS: INSULIN LISPRO 100 UNITS/ML SQ PRN ×3 (12:44→21:19)
[2022-03-06 16:19] LABS: HEMATOCRIT 22.4 % (41-53); HEMOGLOBIN 7.6 g/dL (13.5-17.5)
[2022-03-06] MEDS: PANTOPRAZOLE SODIUM 80 MG in SODIUM CHLORIDE 0.9% 100 ML IV SCH (16:53)
[2022-03-06] MEDS ORDERED: PANTOPRAZOLE SODIUM 40 MG/VIAL IVP SCH (18:00)
[2022-03-06 18:45] LABS: PROTHROMBIN TIME 10.5 SEC (9.4-11.6)
[2022-03-06 20:31] LABS: GLUCOMETER DEV NAME(LOC) 5S.2B; GLUCOSE,POINT OF CARE 241 MG/DL (70-110)
[2022-03-06 20:31] LABS: GLUCOMETER DEV NAME(LOC) 5S.2B; GLUCOSE,POINT OF CARE 313 MG/DL (70-110)
[2022-03-06 21:00] LABS: HEMOGLOBIN 7.1 g/dL (13.5-17.5)
[2022-03-06 21:05] LABS: HEMATOCRIT 20.5 % (41-53)
[2022-03-06] MEDS: INSULIN GLARGINE,HUM.REC.ANLOG 100 UNITS/ML SQ SCH (21:19)
[2022-03-07] MEDS ORDERED: SODIUM CHLORIDE 0.9% 0 ML IV ONE (00:13)
[2022-03-07] MEDS: RINGERS SOLUTION,LACTATED 1,000 ML IV SCH ×3 (00:16→22:48)
[2022-03-07] MEDS: PANTOPRAZOLE SODIUM 80 MG in SODIUM CHLORIDE 0.9% 100 ML IV SCH ×2 (00:19→11:22)
[2022-03-07 01:11] LABS: GLUCOMETER DEV NAME(LOC) 5S.1B; GLUCOSE,POINT OF CARE 219 MG/DL (70-110)
[2022-03-07 01:11] LABS: GLUCOMETER DEV NAME(LOC) 5S.1B; GLUCOSE,POINT OF CARE 220 MG/DL (70-110)
[2022-03-07 03:45] VITALS: BP 146/71
[2022-03-07 06:06] LABS: GLUCOMETER DEV NAME(LOC) 5S.1B; GLUCOSE,POINT OF CARE 114 MG/DL (70-110)
[2022-03-07 06:54] LABS: BASOPHILS % (AUTO) 0.5 % (0.0-2.0); EOSINOPHILS % (AUTO) 1.6 % (1.0-6.0); HEMOGLOBIN 7.5 g/dL (13.5-17.5); LYMPHOCYTES # (AUTO) 1.4 K/uL (1.0-4.8); LYMPHOCYTES % (AUTO) 23.7 % (22.0-44.0); MEAN CORPUSCULAR HEMOGLOBIN 29.7 pg (26.0-34.0); MEAN CORPUSCULAR HGB CONC 34.1 G/dL (31.0-37.0); MEAN CORPUSCULAR VOLUME 87 fL (80-100); MONOCYTES # (AUTO) 0.5 K/uL (0.1-1.0); MONOCYTES % (AUTO) 8.1 % (2.0-9.0); NEUTROPHILS % (AUTO) 66.1 % (40.0-70.0); PLATELET COUNT (AUTO) 152 K/uL (150-450); RED BLOOD CELL COUNT(AUTO) 2.53 MIL/uL (4.50-5.90); RED CELL DISTRIBUTION WIDTH 12.8 % (11.5-14.5)
[2022-03-07 07:06] LABS: ALANINE AMINOTRANSFERASE 11 U/L (12-78); ALBUMIN 2.5 g/dL (3.4-5.0); ALKALINE PHOSPHATASE 78 U/L (46-116); ANION GAP 5 mmol/L (8-16); ASPARTATE AMINOTRANSFERASE 16 U/L (15-37); BILIRUBIN,TOTAL 0.4 mg/dL (0.1-1.0); CARBON DIOXIDE 31 mmol/L (22-29); CHLORIDE 104 mmol/L (98-107); CREATININE 1.26 mg/dL (0.60-1.30); GLOMERULAR FILTR. RATE CALC > 60 mL/min (>60); GLUCOSE,RANDOM 103 mg/dL (70-110); POTASSIUM 3.6 mmol/L (3.5-5.1); SODIUM SERUM 140 mmol/L (136-145); TOTAL PROTEIN, SERUM 5.1 g/dL (6.4-8.2); UREA NITROGEN, BLOOD 26 mg/dL (7-18)
[2022-03-07 07:45] VITALS: BP 145/97
[2022-03-07 08:58] LABS: HEMATOCRIT 21.1 % (41-53); HEMOGLOBIN 7.3 g/dL (13.5-17.5)
[2022-03-07] MEDS: INSULIN GLARGINE,HUM.REC.ANLOG 100 UNITS/ML SQ SCH ×2 (09:00→20:30)
[2022-03-07 11:39] VITALS: BP 158/93
[2022-03-07] MEDS ORDERED: SODIUM CHLORIDE 0.9% 1,000 ML IV ONE (12:30)
[2022-03-07] MEDS ORDERED: SODIUM CHLORIDE 0.9% 1,000 ML ONE (12:33)
[2022-03-07] MEDS ORDERED: FentaNYL CITRATE PF 100 MCG/2 ML VIAL ONE (13:51)
[2022-03-07] MEDS ORDERED: MIDAZOLAM HCL 5 MG/ML VIAL ONE (13:51)
[2022-03-07 15:25] LABS: HEMATOCRIT 21.1 % (41-53); HEMOGLOBIN 7.1 g/dL (13.5-17.5)
[2022-03-07 16:19] VITALS: BP 167/93
[2022-03-07 18:10] LABS: HEMATOCRIT 21.2 % (41-53); HEMOGLOBIN 7.3 g/dL (13.5-17.5)
[2022-03-07] MEDS: INSULIN LISPRO 100 UNITS/ML SQ PRN ×2 (18:14→20:30)
[2022-03-07 19:54] VITALS: BP 141/91
[2022-03-07 21:20] LABS: HEMATOCRIT 20.6 % (41-53); HEMOGLOBIN 6.9 g/dL (13.5-17.5)
[2022-03-07 23:01] LABS: GLUCOMETER DEV NAME(LOC) 5S.2B; GLUCOSE,POINT OF CARE 278 MG/DL (70-110)
[2022-03-07 23:01] LABS: GLUCOMETER DEV NAME(LOC) 5S.2B; GLUCOSE,POINT OF CARE 175 MG/DL (70-110)
[2022-03-07 23:01] LABS: GLUCOMETER DEV NAME(LOC) 5S.2B; GLUCOSE,POINT OF CARE 369 MG/DL (70-110)
[2022-03-07] MEDS ORDERED: SODIUM CHLORIDE 0.9% 250 ML IV ONE (23:49)
[2022-03-08] VITALS (10 sets, daily range): BP systolic 130–180; BP diastolic 70–100
[2022-03-08] MEDS ORDERED: AmLODIPine BESYLATE 5 MG TABLET PO ONE (01:00)
[2022-03-08] MEDS ORDERED: HydrALAZINE HCL 20 MG/ML VIAL IVP ONE (01:00)
[2022-03-08] MEDS: RINGERS SOLUTION,LACTATED 1,000 ML IV SCH ×2 (01:08→08:00)
[2022-03-08] MEDS: INSULIN LISPRO 100 UNITS/ML SQ PRN (06:18)
[2022-03-08 07:39] LABS: BASOPHILS % (AUTO) 0.1 % (0.0-2.0); EOSINOPHILS % (AUTO) 0 % (1.0-6.0); HEMATOCRIT 24.8 % (41-53); HEMOGLOBIN 8.6 g/dL (13.5-17.5); LYMPHOCYTES # (AUTO) 1.1 K/uL (1.0-4.8); LYMPHOCYTES % (AUTO) 14.6 % (22.0-44.0); MEAN CORPUSCULAR HEMOGLOBIN 30.1 pg (26.0-34.0); MEAN CORPUSCULAR HGB CONC 34.6 G/dL (31.0-37.0); MEAN CORPUSCULAR VOLUME 87 fL (80-100); MONOCYTES # (AUTO) 0.5 K/uL (0.1-1.0); MONOCYTES % (AUTO) 6.5 % (2.0-9.0); NEUTROPHILS # (AUTO) 5.7 K/uL (1.8-7.7); NEUTROPHILS % (AUTO) 78.8 % (40.0-70.0); PLATELET COUNT (AUTO) 150 K/uL (150-450); RED BLOOD CELL COUNT(AUTO) 2.86 MIL/uL (4.50-5.90); RED CELL DISTRIBUTION WIDTH 13.1 % (11.5-14.5)
[2022-03-08 08:05] LABS: ALANINE AMINOTRANSFERASE 16 U/L (12-78); ALBUMIN 2.8 g/dL (3.4-5.0); ALKALINE PHOSPHATASE 86 U/L (46-116); ANION GAP 9 mmol/L (8-16); ASPARTATE AMINOTRANSFERASE 14 U/L (15-37); BILIRUBIN,TOTAL 0.7 mg/dL (0.1-1.0); CALCIUM, TOTAL 8.4 mg/dL (8.8-10.5); CARBON DIOXIDE 25 mmol/L (22-29); CHLORIDE 103 mmol/L (98-107); CREATININE 1.26 mg/dL (0.60-1.30); GLOMERULAR FILTR. RATE CALC > 60 mL/min (>60); GLUCOSE,RANDOM 234 mg/dL (70-110); POTASSIUM 3.7 mmol/L (3.5-5.1); SODIUM SERUM 137 mmol/L (136-145); TOTAL PROTEIN, SERUM 5.8 g/dL (6.4-8.2); UREA NITROGEN, BLOOD 14 mg/dL (7-18)
[2022-03-08] MEDS: INSULIN GLARGINE,HUM.REC.ANLOG 100 UNITS/ML SQ SCH (10:25)
[2022-03-08 12:22] LABS: GLUCOMETER DEV NAME(LOC) 5N.3; GLUCOSE,POINT OF CARE 354 MG/DL (70-110)
[2022-03-08 12:22] LABS: GLUCOMETER DEV NAME(LOC) 5N.3; GLUCOSE,POINT OF CARE 207 MG/DL (70-110)
[2022-03-08] MEDS ORDERED: PANT-31 PO (13:52)
[2022-03-08] MEDS ORDERED: LIDOCAINE/PF 2% 5 ML VIAL IM ONE (14:49)
[2022-03-08] MEDS ORDERED: DiphenhydrAMINE HCL 50 MG/ML VIAL IVP ONE (14:49)
[2022-03-08] MEDS ORDERED: DEXAMETHASONE SOD PHOS 4 MG/ML VIAL IVP ONE (14:49)
[2022-03-08 19:25] LABS: GLUCOMETER DEV NAME(LOC) 5S.2B; GLUCOSE,POINT OF CARE 356 MG/DL (70-110)
== END 2022-03-08 14:50 | disposition home or self-care (01) | DRG 637 ==
LOC: EMS 07:26 → 5S 03-06 04:50
PROVIDERS: ADMIT Internal Medicine; ATTEND Internal Medicine
PROC: 30233N1 Transfusion of Nonautologous Red Blood Cells into Peripheral Vein, Percutaneous Approach (ICD-10-PCS; 2022-03-06)
PROC: 0DB68ZX Excision of Stomach, Via Natural or Artificial Opening Endoscopic, Diagnostic (ICD-10-PCS; principal; 2022-03-07 14:00)
DX: E11.10 Type 2 diabetes mellitus with ketoacidosis without coma (principal); K22.11 Ulcer of esophagus with bleeding; K22.6 Gastro-esophageal laceration-hemorrhage syndrome; E87.1 Hypo-osmolality and hyponatremia; R65.10 Systemic inflammatory response syndrome (SIRS) of non-infectious origin without acute organ dysfunction; D62 Acute posthemorrhagic anemia; N17.9 Acute kidney failure, unspecified; K22.10 Ulcer of esophagus without bleeding; E11.65 Type 2 diabetes mellitus with hyperglycemia; E87.5 Hyperkalemia; K44.9 Diaphragmatic hernia without obstruction or gangrene; Z20.822 Contact with and (suspected) exposure to COVID-19; Z53.29 Procedure and treatment not carried out because of patient's decision for other reasons; Z90.49 Acquired absence of other specified parts of digestive tract; Z79.899 Other long term (current) drug therapy; Z79.84 Long term (current) use of oral hypoglycemic drugs
CPT/HCPCS: 71045; 74019; 76770; 80048; 80053; 80061; 81001; 82009; 82271; 82550; 82805; 82962; 83036; 83540; 83550; 83605; 83690; 83735; 83880; 83930; 84100; 84145; 84439; 84443; 84484; 85014; 85018; 85025; 85045; 85610; 86850; 86900; 86901; 86923; 88305; 88312; 88313; 88342; 93005; 93306; 99291; C9113; G0480; J0360; J0610; J1100; J1200; J1815; J2250; J2405; J3010; J3490; J7030; J7040; J7050; J7060; J7120; P9016; 36415-L1; 36415-TC